=== PATIENT | female | born 2000 | race Hispanic/Latino ===

== ENCOUNTER 2021-05-16 13:31 | Emergency (ER) | payer SELFPAY ==
[2021-05-16 13:57] VITALS: BP 154/104
[2021-05-16] MEDS ORDERED: IBUPROFEN 800 MG TAB PO ONE ×2 (13:59→21:10)
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
== END 2021-05-16 22:35 | disposition home or self-care (01) ==
LOC: ED 13:31
DX: S80.12XA Contusion of left lower leg, initial encounter (principal); M79.605 Pain in left leg; X58.XXXA Exposure to other specified factors, initial encounter; Y93.89 Activity, other specified; Y92.89 Other specified places as the place of occurrence of the external cause; Y99.8 Other external cause status
CPT/HCPCS: 72170; 99283